=== PATIENT | female | born 1990 | race American Indian/Alaskan Native ===

== ENCOUNTER 2019-01-30 22:41 | Outpatient (CLI) | payer MEDICAID ==
[2019-01-30] MEDS ORDERED: LACTATED RINGERS 1,000 ML IV ONE (23:22)
[2019-01-31 00:24] LABS: Bacteria,Urine 2+ /HPF (Negative); Bilirubin,Urine NEG (Negative); Blood,Urine SM (Negative); Color,Urine Yellow (Yellow); Mucus,Urine FEW /HPF; Protein,Urine <15 mg/dL mg/dL (Negative); Urobilinogen,Urine < 2.0 mg/dL (<2.0)
[2019-01-31] MEDS ORDERED: BRETHINE SUB-Q ONE ×2 (00:45→01:51)
[2019-01-31] MEDS ORDERED: VISTARIL PO ONE (01:51)
[2019-01-31 02:08] VITALS: BP 128/70
== END 2019-01-31 03:13 | disposition home or self-care (01) ==
LOC: TRG 22:41
PROVIDERS: ATTEND Obstetrics & Gynecology
DX: O62.9 Abnormality of forces of labor, unspecified (principal); O24.415 Gestational diabetes mellitus in pregnancy, controlled by oral hypoglycemic drugs; Z3A.33 33 weeks gestation of pregnancy; Z87.891 Personal history of nicotine dependence
CPT/HCPCS: 36415; 59025; 81001; 82731; 87086; 96360; 96372; J3105; J7120; 96361; Q0177

== ENCOUNTER 2019-02-01 18:00 | Outpatient (CLI) | payer MEDICAID ==
[2019-02-01] MEDS ORDERED: LACTATED RINGERS 500 ML IV ONE (18:59)
[2019-02-01] MEDS ORDERED: LACTATED RINGERS 1,000 ML IV ONE ×2 (19:38→22:03)
[2019-02-01] MEDS ORDERED: BRETHINE ONE (20:09)
[2019-02-01] MEDS: BRETHINE SUB-Q SCH ×3 (20:11→21:11)
[2019-02-01 20:22] LABS: Bilirubin,Urine NEG (Negative); Blood,Urine NEG (Negative); Color,Urine Amber (Yellow); Mucus,Urine 3+ /HPF
[2019-02-01 20:23] LABS: Protein,Urine >500 mg/dL (Negative)
--- NOTE | 2019-02-01 21:55 | Ultrasound Report ---
Examination: Ultrasound Obstetrical Limited, 02/01/2019 INDICATION: Evaluate well being. COMPARISON: No prior studies are available for comparison FINDINGS: There is a single living intrauterine with the head in the cephalic position. Amniotic flui d index measures 9.7 cm, which is within normal limits. The heart rate is 147 beats per minute. Signer Name: Shari Gray MD Signed: 02/01/2019 9:51 PM Workstation Name: [email or web address][id number]
--- NOTE | 2019-02-01 21:56 | Ultrasound Report ---
ULTRASOUND BIOPHYSICAL PROFILE INDICATION / CLINICAL INFORMATION: Evaluate well-being COMPARISON: Limited obstetrical ultrasound, 02/01/2019 FINDINGS: BREATHING MOVEMENT = 2 GROSS BODY MOVEMENT = 2 TONE = 2 QUALITATIVE AMNIOTIC FLUID VOLUME = 2 TOTAL BIOPHYSICAL SCORE = 01/01 AMNIOTIC FLUID INDEX (cm) = 9.7 PRESENTATION: Cephalic. HEART RATE (beats per minute): 147 IMPRESSION: 1. biophysical profile = 01/01 Signer Name: Shari Gray MD Signed: 02/01/2019 9:52 PM Workstation Name: [id number]
[2019-02-01 21:58] VITALS: BP 122/78
[2019-02-01] MEDS ORDERED: ROCEPHIN/NS 1 GM/50 ML 1 GM/50 ML BAG IV ONE (23:00)
== END 2019-02-01 23:12 | disposition home or self-care (01) ==
LOC: TRG 18:00
PROVIDERS: ATTEND Obstetrics & Gynecology
DX: O62.9 Abnormality of forces of labor, unspecified (principal); O26.893 Other specified pregnancy related conditions, third trimester; R06.00 Dyspnea, unspecified; O24.419 Gestational diabetes mellitus in pregnancy, unspecified control; Z3A.33 33 weeks gestation of pregnancy
CPT/HCPCS: 36415; 59025; 76815; 76819; 81001; 82731; 82962; 87086; 96361; 96365; 96372; J0696; J3105; J7120; 96360

== ENCOUNTER 2019-02-23 15:07 | Inpatient (IN) | payer MEDICAID ==
[2019-02-23] MEDS ORDERED: BICITRA ORAL LIQD 30ML PO SCH (15:49)
[2019-02-23] MEDS ORDERED: OXYTOCIN 20 UNIT/1000ML DRIP 20 UNITS/1,000 ML BAG IV SCH ×2 (16:00→20:43)
[2019-02-23] MEDS: LACTATED RINGERS 1,000 ML IV SCH ×2 (16:00→16:39)
--- NOTE | 2019-02-23 16:04 | History and Physical Report ---
<MICHAEL MELENDEZ - Last Filed: 02/23/19 17:05> History of Present Illness Date of examination: 02/23/19 ([facility] recommends delivery due to new dx PreE) Date of admission: 02/23/19 15:13 Chief complaint: Received a call from @ [facility] he recommends delivery due to worsening CHTN now superimposed PreE History of present illness: EDC Confirmation: 03/20/2019 Gestational Age: 10 4/7 weeks Past History : 3 Term Births: 1 Premature Births: 0 Living Children: 1 Para: 1 Mult. Births: 0 Prev. attempt? 0 Aborta: 1 Elect. Ab: 0 Spont. Ab: 1 Ectopics: 0 # 1 Delivery date: 2013 Weeks Gestation: 39 Delivery type: Anesthesia type: epidural Delivery location: [facility] Infant Sex: Male weight: 7-2 Comments: Schedule C/S for GHTN # 2 Delivery date: 2014 Weeks Gestation: 11 Comments: D&C Past Medical History: CHTN - no meds panic attacks PCOS Past Surgical History: C/S Past Medical History Surgery (Non-cook starch): C/S Abnormal PAP: negative JAQUAN Exposure: negative Infertility: negative Uterine Anomaly: negative Uterine Surgery (not C/S): negative Other Gynecologic Problems: negative Social Hx: Patient is single Smoking History: Patient has never smoked. Infection History Hx of STD: none HIV Risk Eval: low risk Hepatitis B Risk Eval: low risk Personal hx. of genital herpes: no Partner hx. of genital herpes: no Rash, Viral, or Febrile illness since last LMP? no Varicella/Chicken Pox Status: Immunized TB Risk: no Infection History Comments: h/o chlamydia Genetic History Congenital Heart Defect: Mom: no Dad: no Jun Disease: Mom: no Dad: no Thalassemia Mom: no Dad: no Neural Tube Defect Mom: no Dad: no Down's Syndrome Mom: yes Dad: no Comments: pt's uncle Greg-Sachs Mom: no Dad: no Sickle Cell Disease/Trait Mom: no Dad: yes Comments: pt's son has SCT Hemophilia Mom: no Dad: no Muscular Dystrophy Mom: no Dad: no Cystic Fibrosis Mom: no Dad: no Rincon Chorea Mom: no Dad: no Mental Retardation Mom: no Dad: no Fragile X Mom: no Dad: no Other Genetic/Chromosomal Disorder Mom: no Dad: no Child w/other defect Mom: no Dad: no Enviromental Exposures Xray Exposure: no Medication, drug, or alcohol use since LMP: no Chemical/Other Exposure: no Exposure to Cat Liter: no Hx of Parvovirus (Fifth Disease): no Occupational Exposure to Children: none Active Medications (reviewed today): None Current Allergies (reviewed today): No known allergies Past History - Obstetrical History Expected Date of Delivery: 03/20/19 Actual Gestation: 36 Week(s) 3 Day(s) : 3 Para: 1 Hx # Term Pregnancies: 1 Number of Pregnancies: 0 Spontaneous Abortions: 1 (D&C) Induced : 0 Number of Living Children: 1 Medications and Allergies Allergies Allergy/AdvReac Type Severity Reaction Status Date / Time No Known Allergies Allergy Verified 11/04/14 12:17 Home Medications Medication Instructions Recorded Confirmed Last Taken Type Metformin HCl [metFORMIN] 2 tab PO QPM 01/30/19 01/30/19 01/29/19 History metFORMIN [Glucophage] 1 tab PO QAM 01/30/19 01/30/19 01/30/19 09:00 History Active Meds: Active Medications Citric Acid/Sodium Citrate (Bicitra) 30 ml PO ONCE MATT Stop: 02/24/19 15:48 Famotidine (Pepcid) 20 mg IV ONCE ONE Stop: 02/23/19 15:50 Oxytocin/Sodium Chloride (Pitocin/Ns 20 Unit/1000ml Drip) 20 units in 1,000 mls @ 0 mls/hr IV TITR MATT Lactated Ringer's (Lactated Ringers) 1,000 mls @ 2,250 mls/hr IV PREOP MATT Stop: 02/24/19 16:27 Cefazolin Sodium 3 gm/ Sodium (Chloride) 100 mls @ 100 mls/30 min IV PREOP NR; Protocol Metoclopramide HCl (Reglan) 10 mg IV ONCE ONE Stop: 02/23/19 15:50 - Vital Signs Vital signs: Vital Signs Pulse Pulse Ox 124 H 95 02/23/19 15:38 02/23/19 15:38 Temp Pulse Resp BP Pulse Ox 124 H 124/63 97 02/23/19 15:58 02/23/19 15:41 02/23/19 15:58 - Physical Exam Breasts: Positive: deferred Cardiovascular: Regular rate, Normal S1, Normal S2 Lungs: Positive: Clear to auscultation Abdomen: Positive: normal appearance, soft, normal bowel sounds. Negative: distention, tenderness Genitourinary (Female): Positive: normal external genitalia Vulva: both: normal Vagina: Positive: normal moisture. Negative: discharge Cervix: Negative: lesion, discharge Uterus: Positive: normal size, normal contour Adnexa: both: normal Anus/Rectum: Positive: normal perianal skin, heme negative. Negative: rectal mass, hemorrhoids Extremities: Positive: edema Deep Tendon Reflex Grade: Normal but brisk +3 - Obstetrical FHR: category 1 Uterine Contraction Monitor Mode: External Uterine Contraction Pattern: Absent Uterine Tone Measurement Phase: Resting Results Result Diagrams: 02/23/19 15:50 All other labs normal. GBS Negative HBsAg Screen Negative Negative *1 RPR Non Reactive Non Reactive *2 Rubella Antibodies, IgG 5.82 index Immune >0.99 *3 Non-immune <0.90 Equivocal 0.90 - 0.99 Immune >0.99 ABO Grouping O *4 Rh Factor Positive *5 Please note: Prior records for this patient's ABO / Rh type are not available for additional verification. Antibody Screen Negative Negative *6 WBC 10.8 x10E3/uL 3.4-10.8 *7 RBC 4.88 x10E6/uL 3.77-5.28 *8 Hemoglobin 11.7 g/dL 11.1-15.9 *9 Hematocrit 38.7 % 34.0-46.6 *10 MCV 79 fL 79-97 *11 MCH [L] 24.0 pg 26.6-33.0 *12 MCHC [L] 30.2 g/dL 31.5-35.7 *13 RDW 14.7 % 12.3-15.4 *14 Platelets 303 x10E3/uL 150-379 *15 Neutrophils 67 % Not Estab. *16 Lymphs 25 % Not Estab. *17 Monocytes 7 % Not Estab. *18 Eos 1 % Not Estab. *19 Basos 0 % Not Estab. *20 ! Immature Cells <No Reported Value> *21 Neutrophils (Absolute) [H] 7.2 x10E3/uL 1.4-7.0 *22 Lymphs (Absolute) 2.7 x10E3/uL 0.7-3.1 *23 Monocytes(Absolute) 0.8 x10E3/uL 0.1-0.9 *24 Eos (Absolute) 0.1 x10E3/uL 0.0-0.4 *25 Baso (Absolute) 0.0 x10E3/uL 0.0-0.2 *26 ! Immature Granulocytes 0 % Not Estab. *27 ! Immature Grans (Abs) 0.0 x10E3/uL 0.0-0.1 *28 ! NRBC <No Reported Value> *29 Hematology Comments: <No Reported Value> *30 Tests: (2) Ct, Ng, Trich vag by BRENNAN ([id number]) ! Chlamydia by BRENNAN Negative Negative *31 ! Gonococcus by BRENNAN Negative Negative *32 ! Trich vag by BRENNAN [A] Positive Negative *33 Tests: (3) HB Solu + Rflx [facility] ([id number]) Hemoglobin (Hgb) Solubility Negative Negative *34 Tests: (4) Panel [id number] ([id number]) HIV Screen 4th Generation wRfx Non Reactive Non Reactive *35 Tests: (5) HCV Ab w/Rflx to Verification ([id number]) ! HCV Ab <0.1 s/co ratio 0.0-0.9 *36 Tests: (6) Comment: ([id number]) ! Comment: SPRCS *37 Non reactive HCV antibody screen is consistent with no HCV infection, unless recent infection is suspected or other evidence exists to indicate HCV infection. Tests: (7) Urine Culture, Routine ([id number]) Urine Culture, Routine Final report *38 Tests: (8) Result ([id number]) ! Result 1 MUG Assessment and Plan - Patient Problems (1) Previous section Onset Date: ~02/23/19 Current Visit: Yes Status: Acute Plan to address problem: Pt agrees to repeat section Preop orders given. Pt last ate @ 0700 "a piece of chicken" All orders in EMR (2) Pre-eclampsia Current Visit: Yes Status: Acute Qualifiers: Trimester: third trimester Qualified Code(s): O14.93 - Unspecified pre- eclampsia, third trimester Plan to address problem: PIH labs ordered. As per [facility] this is new DX for pt. Will consult with Dr.Y garner regarding MGSO4 postoperatively BP 124/63 on admission Pt does have CHtn not on medication (3) Diabetes, gestational Onset Date: ~02/23/19 Current Visit: Yes Status: Acute Qualifiers: Gestational diabetes mellitus control: oral hypoglycemic-controlled Trimester: third trimester Qualified Code(s): O24.415 - Gestational diabetes mellitus in , controlled by oral hypoglycemic drugs Plan to address problem: Pt is on metformin declined to use insulin during Hgb A1c ordered (4) Trichomonal vaginitis Onset Date: ~02/23/19 Current Visit: Yes Status: Acute Plan to address problem: pt has been + for trich during most of and has been repeatedly treated Will consult with about using IV Flagyl <CIPRIANO STOUT - Last Filed: 02/23/19 17:12> History of Present Illness Date of admission: 02/23/19 15:13 Chief complaint: Patient seen and agree with plan. She states that she has changed her mind and did not want a tubal ligation at this time Medications and Allergies Active Meds: Active Medications Citric Acid/Sodium Citrate (Bicitra) 30 ml PO ONCE MATT Stop: 02/24/19 15:48 Last Admin: 02/23/19 17:00 Dose: 30 ml Documented by: Famotidine (Pepcid) 20 mg IV ONCE MATT Stop: 02/24/19 16:59 Last Admin: 02/23/19 16:59 Dose: 20 mg Documented by: Hydromorphone HCl (Dilaudid) 0.5 mg IV Q5M PRN PRN Reason: BREAK Hydromorphone HCl (Dilaudid) 0.5 mg IV Q4H PRN PRN Reason: breakthrough pain > 7/10 Oxytocin/Sodium Chloride (Pitocin/Ns 20 Unit/1000ml Drip) 20 units in 1,000 mls @ 0 mls/hr IV TITR MATT Lactated Ringer's (Lactated Ringers) 1,000 mls @ 2,250 mls/hr IV PREOP MATT Stop: 02/24/19 17:27 Last Admin: 02/23/19 16:39 Dose: 2,250 mls/hr Documented by: Cefazolin Sodium 3 gm/ Sodium (Chloride) 100 mls @ 100 mls/30 min IV PREOP NR; Protocol Stop: 02/24/19 15:59 Naloxone HCl (Narcan 0.4 Mg/1 Ml) 0.2 mg IV Q2MIN PRN PRN Reason: Res Rate </= 8 or 02 SAT < 92% Ondansetron HCl (Zofran) 4 mg IV Q8H PRN PRN Reason: Nausea And Vomiting Promethazine HCl (Phenergan) 25 mg PO Q6H PRN PRN Reason: Nausea And Vomiting Promethazine HCl (Phenergan) 25 mg DE Q6H PRN PRN Reason: Nausea And Vomiting Sodium Chloride (Sodium Chloride Flush Syringe 10 Ml) 10 ml IV PRN NR Stop: 02/24/19 16:59 - Vital Signs Vital signs: Vital Signs Pulse Pulse Ox 124 H 95 02/23/19 15:38 02/23/19 15:38 Temp Pulse Resp BP Pulse Ox 97.6 F 114 H 18 134/95 91 02/23/19 16:20 02/23/19 17:04 02/23/19 16:20 02/23/19 17:04 02/23/19 17:03 Results Result Diagrams: 02/23/19 15:50 Abnormal lab results 02/23/19 02/23/19 02/23/19 Range/Units 15:50 15:50 17:13 MCV 72 L (79-97) fl MCH 23 L (28-32) pg POC Glucose 66 L (70-105) Hemoglobin A1c 7.5 H (4-6) % All other labs normal. Assessment and Plan - Patient Problems (1) Previous section Onset Date: ~02/23/19 Current Visit: Yes Status: Acute Plan to address problem: Patient informed the risks of the surgery include bleeding possibly bleeding heavy enough to require blood transfusion, infection possible damage to bowel bladder ureter. All questions answered. Patient agrees to proceed
[2019-02-23 16:25] LABS: Basophils % (Auto) 0.3 % (0.0-1.8); Eosinophils % (Auto) 0.4 % (0.0-4.3); Hematocrit 34.4 % (30.3-42.9); Hemoglobin 10.9 gm/dl (10.1-14.3); Lymphocytes # (Auto) 2.7 K/mm3 (1.2-5.4); Mean Corpuscular HGB Conc 32 % (30-34); Mean Corpuscular Volume 72 fl (79-97); Monocytes # (Auto) 0.6 K/mm3 (0.0-0.8); Monocytes % (Auto) 6.1 % (0.0-7.3); Platelet Count 257 K/mm3 (140-440); Red Blood Count 4.76 M/mm3 (3.65-5.03); Red Cell Distribution Width 14.6 % (13.2-15.2)
[2019-02-23] MEDS ORDERED: METOCLOPRAMIDE 10 MG/2 ML INJ IV ONE (16:49)
[2019-02-23] MEDS ORDERED: ceFAZolin/Water 2 GM/20 ML 2 GM/20 ML SYRINGE IV ONE (16:54)
[2019-02-23] MEDS ORDERED: NALOXONE 0.4 MG/1 ML INJ IV PRN ×2 (16:56→20:43)
[2019-02-23] MEDS ORDERED: ONDANSETRON 4 MG/2 ML INJ IV PRN (16:56)
[2019-02-23] MEDS ORDERED: PROMETHAZINE 25 MG TAB PO PRN (16:56)
[2019-02-23] MEDS ORDERED: HYDROmorphone 1 MG/1 ML INJ IV PRN ×2 (16:56)
[2019-02-23] MEDS ORDERED: PROMETHAZINE 25 MG RECT SUPP PR PRN (16:56)
--- NOTE | 2019-02-23 16:58 | Anesthesia Day of Surgery ---
Anesthesia Day of Surgery - Day of Surgery Patient Examined: Yes Patient H&P Reviewed: Yes Patient is NPO: Yes
--- NOTE | 2019-02-23 16:58 | Anesthesia Consultation ---
Anesthesia Consult and Med Hx Date of service: 02/23/19 - Airway Anesthetic Teeth Evaluation: Good ROM Head & Neck: Adequate Mental/Hyoid Distance: Adequate Mallampati Class: Class II Intubation Access Assessment: Good - Pulmonary Exam CTA: Yes - Cardiac Exam Cardiac Exam: RRR - Pre-Operative Health Status ASA Pre-Surgery Classification: ASA3, Emergency Proposed Anesthetic Plan: Spinal - Pulmonary Hx Smoking: Yes Hx Asthma: No COPD: No Hx Pneumonia: No - Cardiovascular System Hx Hypertension: No Hx Cardia Arrhythmia: Yes (occasional when under stress. last episode 1yr ago.) - Central Nervous System Hx Seizures: No Hx Psychiatric Problems: No - Endocrine Hx Renal Disease: No Hx End Stage Renal Disease: No Hx Non-Insulin Dependent Diabetes: Yes (gestational) Hx Hypothyroidism: No Hx Hyperthyroidism: No - Hematic Hx Anemia: Yes Hx Sickle Cell Disease: No - Other Systems Hx Alcohol Use: No Hx Substance Use: Yes (marijuana use occas., last used "1 mo ago") Hx Cancer: No Hx Obesity: Yes (Morbid obesity, BMI 50.8)
[2019-02-23] MEDS ORDERED: PHENYLEPHRINE/NS 1,000 MCG/10 ML SYRINGE (OR USE) IV ONE (17:00)
[2019-02-23] MEDS ORDERED: FAMOTIDINE 20 MG/2 ML INJ IV SCH (17:00)
[2019-02-23] MEDS ORDERED: DEXMEDETOMIDINE 200 MCG/2 ML VIAL IV ONE (17:05)
[2019-02-23] MEDS ORDERED: ONDANSETRON 4 MG/2 ML INJ ONE (17:05)
[2019-02-23] MEDS ORDERED: DEXTROSE 50% IN WATER (25GM) 50 ML SYRINGE IV ONE (17:10)
[2019-02-23] MEDS ORDERED: SODIUM CHLORIDE 0.9% IRR 1,500 ML BOTTLE IR ONE (17:25)
[2019-02-23] MEDS ORDERED: WATER FOR IRRIG STERILE 1,500 ML BOTTLE IR ONE (17:25)
[2019-02-23] MEDS ORDERED: MAGNESIUM SULFATE 40GM/1000ML 0 GM/0 ML BAG IV ONE (17:27)
[2019-02-23] MEDS ORDERED: ePHEDrine SULFATE 50 MG/1 ML INJ ONE (17:53)
[2019-02-23] MEDS ORDERED: MAGNESIUM SULFATE 40GM/1000ML 40 GM/1,000 ML BAG IV SCH (18:00)
[2019-02-23] MEDS ORDERED: OXYTOCIN 10 UNIT/1 ML INJ ONE (18:14)
[2019-02-23] MEDS ORDERED: diphenhydrAMINE 50 MG/ML VIAL ONE (18:14)
[2019-02-23] MEDS ORDERED: KETOROLAC 30 MG/1 ML INJ ONE (18:14)
--- NOTE | 2019-02-23 18:51 | Operative Report ---
Operative Report Operative Report: Date of procedure: 02/23/2019 Pre-operative diagnosis: Intrauterine at 36 weeks with gestational di abetes and worsening gestational hypertension. Previous section and morbidly obese. Body mass index 63.8 kg/m Post-operative diagnosis: Same Procedure name(s): Repeat low transverse section Surgeon: Elkin Huggins MD Lard Refiner: Malini Sandoval, certified nurse direct selling counselor Anesthesia: Spinal EBL: 700 mL Complications: None Findings: Uterus with a thin lower uterine segment normal tubes and ovaries bilaterally. Female weight 9 lbs. 0 oz. Apgars 5 at 1 minute and 7 at 5 minutes Specimen(s): Placenta Procedure: The patient was brought to the operating room. A spinal was placed without any complications. She was then placed in left lateral tilt. Prepped and draped in the usual sterile manner. After testing for adequate anesthesia level, a Pfannenstiel incision was made through her previous scar. This incision was taken down to the fascia. The fascia was then nicked in the midline. This incision was extended out laterally with Post scissors. The fascia was then sharply and bluntly from the underlying rectus muscles. The rectus muscles were bluntly and sharply . The peritoneum was then entered with the bullard operator's fingers. This incision was spread vertically with care not to damage the bladder below. The bladder flap was then formed sharply and bluntly with Metzenbaum scissors. Bladder blade was placed. A transverse incision was made in lower uterine segment. This incision was extended laterally with the operators fingers. The amniotic sac was then entered bluntly with the bullard operator's fingers. The was delivered from the vertex position. Bulb suction on the mother's abdomen. Cord was double clamped and cut. The was then passed to the nursery personnel who were in attendance. The above scores were given by the nursery personnel. The placenta was then bluntly removed. The uterus was then externalized and wiped clean the remaining products. The uterine incision was closed in layers. The first incision was closed in a locking manner using 0 Vicryl. This was followed by imbricating stitch also with 0 Vicryl. This closure was hemostatic. The bladder flap was copiously irrigated and found to be hemostatic. The pelvis was copiously irrigated and found to be hemostatic. The uterus was then placed back to the patient's abdomen. The retractors were removed. The rectus muscles were inspected and found to be hemostatic. The fascia was then closed in a running manner using 0 Vicryl. This incision was hemostatic irrigation Bovie. The skin was reapproximated with 4-0 Vicryl subcuticularly. The patient tolerated procedure well. Her urine was clear. The infant was admitted to the [well baby] nursery. The patient was accompanied to recovery room in good condition. Instrument count correct 3
[2019-02-23 19:19] LABS: Alanine Aminotransferase 8 units/L (7-56); Uric Acid 4.3 mg/dL (3.5-7.6)
[2019-02-23] MEDS ORDERED: SODIUM CHLORIDE 0.9% 1000 ML 1,000 ML IV SCH (20:43)
[2019-02-23] MEDS ORDERED: HYDROcodone/ACETAMINOPHEN 5-325 MG TAB PO PRN (20:43)
[2019-02-23] MEDS ORDERED: SIMETHICONE 80 MG CHEW TAB PO PRN (20:43)
[2019-02-23] MEDS ORDERED: WITCH HAZEL/ GLYCERIN PAD TP PRN (20:43)
[2019-02-23] MEDS ORDERED: LANOLIN/ZINC/DIMETHICONE (LANSINOH) 7 GM TP PRN (20:43)
[2019-02-23] MEDS ORDERED: MAGNESIUM HYDROXIDE (MOM) ORAL LIQD UDC PO PRN (20:43)
[2019-02-23] MEDS ORDERED: DEXTROSE 50% IN WATER (25GM) 50 ML SYRINGE IV PRN (20:43)
[2019-02-23] MEDS: KETOROLAC 30 MG/1 ML INJ IV SCH (20:56)
[2019-02-23] MEDS: HYDROmorphone 1 MG/1 ML INJ IV PRN (21:56)
[2019-02-24] MEDS: ceFAZolin/NS 1 GM/50 ML 1 GM/50 ML BAG IV SCH ×2 (01:25→09:18)
[2019-02-24] MEDS: HYDROmorphone 1 MG/1 ML INJ IV PRN ×4 (01:25→22:09)
[2019-02-24] MEDS: KETOROLAC 30 MG/1 ML INJ IV SCH ×2 (03:56→14:30)
[2019-02-24] MEDS: INSULIN REGULAR, HUMAN 100 UNITS/1 ML SUB-Q SCH ×4 (06:02→19:43)
--- NOTE | 2019-02-24 06:28 | Event Note ---
Date: 02/24/19 (BP 140-120/90) Spoke with 1. will start labetalol 200mg po BID 3. BS fasting & 2hr PP 3. medicine consult to guide with tx of GDM vs DM; A1c 7.1 4. Flagyl IVPB due to persistent Trich in
--- NOTE | 2019-02-24 07:58 | Progress Note ---
Assessment and Plan patient reports pain medication is not holding her pain at reasonable level, will increase Basin from 1 tab to 2 tabs PO q6h to manage pain. Lochia small, difficult to fully assess fundus d/t body habitus and BMI. Incision D&I. encouraged AM care, advance diet and activity as tolerated. Breast pumping while in NICU q3hr. - Patient Problems (1) delivery delivered Current Visit: Yes Status: Acute Plan to address problem: continue postop pathway advance diet and activity as tolerated (2) Diabetes, gestational Onset Date: ~02/23/19 Current Visit: Yes Status: Acute Qualifiers: Gestational diabetes mellitus control: unspecified Trimester: third trimester Qualified Code(s): O24.419 - Gestational diabetes mellitus in , unspecified control Plan to address problem: Medicine and nutritional consult ordered in NICU for glucose monitoring Advance diet to consistent carbohydrate when passing gas. continue with blood sugar monitoring (3) BMI 60.0-69.9, adult Current Visit: Yes Status: Acute Plan to address problem: nutritional consult ordered careful care of incision (4) Pre-eclampsia Current Visit: Yes Status: Acute Qualifiers: Trimester: third trimester Qualified Code(s): O14.93 - Unspecified pre- eclampsia, third trimester Plan to address problem: b/p 120-140's/90's Labetalol 200mg PO BID Pt denies SOUZA, visual changes or epigastric pain Continue to monitor Subjective - Subjective Date of service: 02/24/19 Principal diagnosis: postop day #1 s/p repeat c/s Patient reports: appetite normal, voiding normally, pain poorly controlled, ambulating normally, no dizzy ambulation, no flatus, no bowel movement, no na useated : in NICU, other (plans on ) Objective - Vital Signs Latest vital signs: Vital Signs Temp Pulse Resp BP BP Pulse Ox 02/24/19 06:57 18 02/24/19 05:57 18 02/24/19 05:50 99.4 F 109 H 20 127/92 02/24/19 04:26 16 02/24/19 04:15 98.1 F 96 H 22 142/93 95 02/24/19 03:56 18 02/24/19 01:55 18 02/24/19 01:25 20 02/23/19 22:56 98.5 F 18 129/96 02/23/19 22:26 18 02/23/19 21:56 20 02/23/19 21:26 18 02/23/19 20:56 18 02/23/19 18:50 93 H 16 99/58 99 02/23/19 17:04 114 H 134/95 02/23/19 17:03 117 H 91 02/23/19 16:58 120 H 97 02/23/19 16:53 110 H 98 02/23/19 16:48 132 H 98 02/23/19 16:43 111 H 99 02/23/19 16:38 119 H 98 02/23/19 16:33 113 H 99 02/23/19 16:28 111 H 98 02/23/19 16:23 116 H 97 02/23/19 16:20 97.6 F 116 H 18 124/63 02/23/19 16:18 117 H 98 02/23/19 16:13 108 H 98 02/23/19 16:08 131 H 98 02/23/19 16:03 120 H 98 02/23/19 15:58 124 H 97 02/23/19 15:53 119 H 98 02/23/19 15:48 114 H 96 02/23/19 15:43 137 H 97 02/23/19 15:41 116 H 124/63 02/23/19 15:38 124 H 95 Intake and Output 02/23/19 02/23/19 02/24/19 15:59 23:59 07:59 Intake Total 2300 360 Output Total 200 400 Balance 2100 -40 Intake: IV 2300 Lactated Ringers 1,000 ml 1000 @ 2250 mls/hr IV PREOP [facility] Rx#:[id number] Intake, Free Water 360 Output: Urine 200 400 Indwelling Catheter 400 Other: Total, Output Amount 200 Weight 163.293 kg Estimated Blood Loss 700 - Exam Breasts: Present: normal Cardiovascular: Present: Regular rate Lungs: Present: Clear to auscultation, Normal air movement Abdomen: Present: normal appearance, soft. Absent: distention, tenderness, guarding Vulva: both: normal Uterus: Present: normal, firm, fundal height at umbilicus Extremities: Present: normal Deep Tendon Reflex Grade: Normal +2 Incision: Present: normal, dry, intact - Labs Labs: Abnormal lab results 02/23/19 02/23/19 02/23/19 Range/Units 15:50 15:50 15:50 MCV 72 L (79-97) fl MCH 23 L (28-32) pg Creatinine 0.5 L (0.7-1.2) mg/dL POC Glucose (70-105) Hemoglobin A1c 7.5 H (4-6) % Magnesium (1.7-2.3) mg/dL Lactate Dehydrogenase 303 H (91-180) units/L 02/23/19 02/23/19 02/23/19 Range/Units 17:13 17:44 18:16 MCV (79-97) fl MCH (28-32) pg Creatinine (0.7-1.2) mg/dL POC Glucose 66 L 113 H 106 H (70-105) Hemoglobin A1c (4-6) % Magnesium (1.7-2.3) mg/dL Lactate Dehydrogenase (91-180) units/L 02/23/19 02/24/19 02/24/19 Range/Units 19:16 00:07 06:07 MCV (79-97) fl MCH (28-32) pg Creatinine (0.7-1.2) mg/dL POC Glucose 107 H 112 H (70-105) Hemoglobin A1c (4-6) % Magnesium 1.40 L (1.7-2.3) mg/dL Lactate Dehydrogenase (91-180) units/L
[2019-02-24] MEDS ORDERED: metroNIDAZOLE/NS 1000 MG-200ML 1,000 MG in EMPTY BAG 0 ML IV ONE (09:00)
[2019-02-24] MEDS: PRENATAL VIT27-FE FUMARATE-FOLIC ACID VIT TAB PO SCH (09:18)
[2019-02-24] MEDS ORDERED: metFORMIN 500 MG TAB PO SCH (10:00)
[2019-02-24 10:33] LABS: Hematocrit 28.1 % (30.3-42.9); Hemoglobin 8.9 gm/dl (10.1-14.3)
[2019-02-24] MEDS: HYDROcodone/ACETAMINOPHEN 5-325 MG TAB PO PRN (14:00)
[2019-02-24] MEDS: FERROUS SULFATE 325 MG TAB PO SCH (14:30)
[2019-02-25] MEDS: HYDROcodone/ACETAMINOPHEN 5-325 MG TAB PO PRN ×4 (00:15→22:05)
[2019-02-25] MEDS: INSULIN REGULAR, HUMAN 100 UNITS/1 ML SUB-Q SCH ×4 (00:19→18:02)
[2019-02-25] MEDS: IBUPROFEN 800 MG TAB PO PRN ×2 (05:39→19:33)
--- NOTE | 2019-02-25 09:00 | Progress Note ---
Assessment and Plan POD 2 s/p repeat c/s. Patient sitting on side of bed, states she is on her way to see infant in NICU. Patient reports feeling well, she denies any complaints. FF, ML, @U. Vaginal bleeding is small, patient denies any heavy bleeding. She reports she had a "large clot" this morning, cups hands to size of golfball when she awoke this morning and ambulated to bathroom to empty. Encouraged pt to continue to empty bladder frequently, notify nursing staff of any clots so that they can assess. Incision is well approximated, healing well, no bleeding or drainage noted, no s/s infection. DWP proper care/hygiene for incision. Patient has breast pump to bedside, reports it is going well, no breast complaints. Encouraged frequent pumping to increase supply. Reviewed post delivery H&H with patient, she denies any dizziness or feeling faint with ambulation or position changes. She denies any SOUZA, Visual disturbances, SOB, chest pain, difficulty breathing, or any other complaints. Encouraged to continue frequent ambulation, increase water intake, use of IS. VSSAF on labetalol at current order. Reviewed pt blood sugar levels, she attributes elevated levels d/t RN not wiping first drop of blood from finger prior to testing samplt. DWP A1c level and good nutrition and compliance with regimen/plan set by care providers. Pt denies seeing anyone yet for consults placed, RN aware of consults and will call to ensure they are aware to see patient today. Will continue to monitor BP and BS, continue post op pathway. (1) delivery delivered Current Visit: Yes Status: Acute Plan to address problem: continue postop pathway advance diet and activity as tolerated (2) Diabetes, gestational Onset Date: ~02/23/19 Current Visit: Yes Status: Acute Qualifiers: Gestational diabetes mellitus control: unspecified Trimester: third trimester Qualified Code(s): O24.419 - Gestational diabetes mellitus in , unspecified control Plan to address problem: Medicine and nutritional consult ordered in NICU for glucose monitoring continue with blood sugar monitoring (3) BMI 60.0-69.9, adult Current Visit: Yes Status: Acute Plan to address problem: nutritional consult ordered careful care and thorough assessment of incision (4) Pre-eclampsia Current Visit: Yes Status: Acute Qualifiers: Trimester: third trimester Qualified Code(s): O14.93 - Unspecified pre- eclampsia, third trimester Plan to address problem: b/p 110-140's/70-90's Labetalol 200mg PO BID Pt denies SOUZA, visual changes or epigastric pain Continue to monitor Subjective - Subjective Date of service: 02/25/19 Principal diagnosis: postop day #2 s/p repeat c/s Patient reports: appetite normal, voiding normally, pain well controlled, flatus, ambulating normally [place]: in NICU Objective - Vital Signs Latest vital signs: Vital Signs Temp Pulse Resp BP BP Pulse Ox 02/25/19 06:39 18 02/25/19 05:39 18 02/25/19 04:00 98.6 F 63 18 117/72 02/25/19 01:15 18 02/25/19 00:15 18 02/25/19 00:00 98.4 F 74 18 106/71 02/24/19 22:39 18 02/24/19 22:10 80 118/82 02/24/19 22:09 18 02/24/19 19:30 98.4 F 80 18 118/82 02/24/19 15:55 99.5 F 86 20 137/91 96 Intake and Output 02/24/19 02/25/19 02/25/19 23:59 07:59 15:59 Intake Total 300 Output Total 200 300 Balance 100 -300 Intake: Intake, Free Water 300 Output: Urine 200 300 Indwelling Catheter 200 Void 300 Other: Total, Output Amount 200 300 # Voids Indwelling Catheter 3 Void 1 1 - Exam Breasts: Present: normal Cardiovascular: Present: Regular rate, Normal S1, Normal S2 Lungs: Present: Clear to auscultation, Normal air movement Abdomen: Present: normal appearance, soft, normal bowel sounds Vulva: both: normal Uterus: Present: normal, firm, fundal height at umbilicus Extremities: Present: normal Deep Tendon Reflex Grade: Normal +2 Incision: Present: normal, dry, intact - Labs Labs: Abnormal lab results 02/24/19 02/24/19 02/24/19 Range/Units 10:13 10:15 14:27 Hgb 8.9 L (10.1-14.3) gm/dl Hct 28.1 L D (30.3-42.9) % POC Glucose 122 H 160 H (70-105) 02/24/19 02/24/19 Range/Units 19:05 21:24 Hgb (10.1-14.3) gm/dl Hct (30.3-42.9) % POC Glucose 167 H 107 H (70-105)
[2019-02-25] MEDS: FERROUS SULFATE 325 MG TAB PO SCH (09:40)
[2019-02-25] MEDS: PRENATAL VIT27-FE FUMARATE-FOLIC ACID VIT TAB PO SCH (09:40)
--- NOTE | 2019-02-25 12:35 | Consultation ---
History of Present Illness - Reason for Consult Consult date: 02/25/19 HTN, Diabetes Requesting physician: CIPRIANO STOUT - History of Present Illness 28 YO Female with Gestational DM, HTN, Preeclampsia POD #2 S/P C Section. Consult placed for DM and HTN. Pt seen and evaluated in her room. Pt denies fever, chills, CP, Palpitations, NVD, Headache, Blurred vision, Trauma, Productive cough, Polydipsia, Polyuria, Polyphagia. Pt denies any complaints at time of exam. No reported nursing events. Pt ambulating independently. Past History Past Medical History: diabetes, hypertension Past Surgical History: Social history: single. denies: smoking, alcohol abuse, prescription drug abuse Family history: hypertension Medications and Allergies Allergies Allergy/AdvReac Type Severity Reaction Status Date / Time No Known Allergies Allergy Verified 11/04/14 12:17 Home Medications Medication Instructions Recorded Confirmed Last Taken Type Metformin HCl [metFORMIN] 2 tab PO QPM 01/30/19 02/23/19 01/29/19 History metFORMIN [Glucophage] 1 tab PO QAM 01/30/19 02/23/19 01/30/19 09:00 History Ferrous Sulfate [Feosol 325 MG tab] 325 mg PO BID #60 tablet 02/23/19 Unknown Rx Ibuprofen [Motrin 800 MG tab] 800 mg PO Q6H PRN #30 tablet 02/23/19 Unknown Rx oxyCODONE /ACETAMINOPHEN [Percocet 1 - 2 tab PO Q4H PRN #30 tablet 02/23/19 Unknown Rx 5/325 mg] Active Meds: Active Medications Acetaminophen/Hydrocodone Bitart ([place] 5/325) 2 each PO Q6H PRN PRN Reason: Pain, Moderate (4-6) Last Admin: 02/25/19 00:15 Dose: 2 each Documented by: Dextrose (D50w (25gm) Syringe) 50 ml IV PRN PRN PRN Reason: Hypoglycemia Ferrous Sulfate (Feosol) 325 mg PO QDAY MATT Last Admin: 02/24/19 14:30 Dose: 325 mg Documented by: Hydromorphone HCl (Dilaudid) 0.5 mg IV Q4H PRN PRN Reason: Pain , Severe (7-10) Last Admin: 02/24/19 22:09 Dose: 0.5 mg Documented by: Magnesium Sulfate (Magnesium Sulfate 40gm/1000ml) 40 gm in 1,000 mls @ 50 mls/hr IV DIRECT MATT Oxytocin/Sodium Chloride (Pitocin/Ns 20 Unit/1000ml Drip) 20 units in 1,000 mls @ 250 mls/hr IV DIRECT MATT Sodium Chloride (Nacl 0.9% 1000 Ml) 1,000 mls @ 75 mls/hr IV DIRECT MATT Last Admin: 02/24/19 03:56 Dose: 75 mls/hr Documented by: Ibuprofen (Ibuprofen) 800 mg PO Q6H PRN PRN Reason: Pain, Mild (1-3) Last Admin: 02/25/19 05:39 Dose: 800 mg Documented by: Insulin Human Regular (Humulin R) 0 units SUB-Q Q6HR [facility]; Protocol Last Admin: 02/25/19 05:47 Dose: Not Given Documented by: Labetalol HCl (Normodyne) 200 mg PO BID [facility] Last Admin: 02/24/19 22:10 Dose: 200 mg Documented by: Magnesium Hydroxide (Milk Of Magnesia) 30 ml PO QHS PRN PRN Reason: Constip Unrelieved By Senna Multi-Ingredient Ointment (Lansinoh) 1 applic TP PRN PRN PRN Reason: dryness/cracking Multivitamins/Iron/Calcium ( Vitamin) 1 each PO QDAY [facility] Last Admin: 02/24/19 09:18 Dose: 1 each Documented by: Naloxone HCl (Narcan 0.4 Mg/1 Ml) 0.1 mg IV Q2MIN PRN PRN Reason: Res Rate </= 8 or 02 SAT < 92% Simethicone (Mylicon) 80 mg PO Q6H PRN PRN Reason: Gas pain Last Admin: 02/25/19 05:47 Dose: 80 mg Documented by: Sodium Chloride (Sodium Chloride Flush Syringe 10 Ml) 10 ml IV PRN PRN PRN Reason: LINE FLUSH Witch Leydi/Glycerin (Tucks Pad) 1 each TP PRN PRN PRN Reason: Hemorrhoids/cleansing/soothing Review of Systems Constitutional: no weight loss, no weight gain, no fever, no sweats Ears, nose, mouth and throat: no ear pain, no tinnitis, no decreased hearing, no nasal congestion, no nasal discharge, no sinus pressure Breasts: no change in shape, no swelling, no mass Cardiovascular: no chest pain, no palpitations, no rapid/irregular heart beat, no edema, no syncope, no lightheadedness Respiratory: no cough, no cough with sputum, no excessive sputum, no hemoptysis, no shortness of breath, no dyspnea on exertion Gastrointestinal: no nausea, no vomiting, no constipation, no change in bowel habits, no hematemesis, no coffee ground emesis Genitourinary Female: no dysmenorrhea, no pelvic pain, no flank pain, no me norrhagia, no dysuria, no urinary frequency, no urgency, no post void dribbling, no incomplete emptying Menstruation: no currently menstrual, no post hysterectomy, no ammenorrhea, no period normal, no period heavy, no period light Rectal: no pain, no incontinence, no bleeding, no itching, no hemorrhoids Musculoskeletal: no neck stiffness, no neck pain, no shooting arm pain, no low back pain, no shooting leg pain, no leg numbness/tingling, no muscle cramps, no myalgias, no atrophy, no limitation of motion Integumentary: no rash, no pruritis, no redness, no sores, no wounds, no jaundice, no boils Neurological: no transient paralysis, no paralysis, no parathesias, no numbness, no tingling, no seizures, no syncope, no tremors, no ataxia, no migraines, no convulsions, no change in speech, no change in mentation, no confusion, no memory loss Psychiatric: no anxiety, no hypersomnia, no change in appetite, no change in libido, no suicidal ideation, no disorientation Endocrine: no cold intolerance, no heat intolerance, no polyphagia, no excessive thirst, no polyuria, no nocturia, no excessive sweating, no flushing, no deepening of the voice, no thyroid mass, no palpatations, no low blood sugars Hematologic/Lymphatic: no easy bruising, no easy bleeding, no lymphadenopathy, no lymphedema Allergic/Immunologic: no urticaria, no allergic rhinitis, no persistent infec tions, no anaphylaxis Exam - Constitutional Vitals: Temp Pulse Resp BP Pulse Ox 97.7 F 88 18 144/90 96 02/25/19 08:19 02/25/19 08:19 02/25/19 08:19 02/25/19 08:19 02/25/19 08:19 General appearance: Present: no acute distress, well-nourished, obese - EENT Eyes: Present: PERRL ENT: hearing intact, clear oral mucosa - Neck Neck: Present: supple, normal ROM - Respiratory Respiratory effort: normal Respiratory: bilateral: CTA - Cardiovascular Heart Sounds: Present: S1 & S2. Absent: rub, click - Extremities Extremities: pulses symmetrical, No edema Peripheral Pulses: within normal limits - Abdominal General gastrointestinal: Present: soft, non-tender, non-distended, normal bowel sounds Female genitourinary: Present: normal - Integumentary Integumentary: Present: clear, warm, dry - Musculoskeletal Musculoskeletal: gait normal, strength equal bilaterally - Psychiatric Psychiatric: appropriate mood/affect, intact judgment & insight - Neurologic Neurologic: CNII-XII intact, moves all extremities Results - Labs CBC & Chem 7: 02/24/19 10:13 02/23/19 15:50 Labs: Abnormal lab results 02/24/19 02/24/19 02/24/19 Range/Units 14:27 19:05 21:24 POC Glucose 160 H 167 H 107 H (70-105) 02/25/19 Range/Units 10:33 POC Glucose 132 H (70-105) Assessment and Plan - Patient Problems (1) HTN (hypertension) Current Visit: Yes Status: Acute Qualifiers: Hypertension type: essential hypertension Qualified Code(s): I10 - Essential (primary) hypertension Plan to address problem: Monitor BP q shift, continue medical management. continue Beta subhash therapy. (2) Diabetes, gestational Onset Date: ~02/23/19 Current Visit: Yes Status: Acute Qualifiers: Gestational diabetes mellitus control: unspecified Trimester: third trimester Qualified Code(s): O24.419 - Gestational diabetes mellitus in , unspecified control Plan to address problem: sliding scale insulin, accu check, hypoglycemia protocol, consistent carbohydrate diet. Outpatient F/U with BID glucose log.
[2019-02-26] MEDS: IBUPROFEN 800 MG TAB PO PRN ×2 (01:51→10:11)
[2019-02-26] MEDS: HYDROcodone/ACETAMINOPHEN 5-325 MG TAB PO PRN ×2 (03:50→12:00)
[2019-02-26] MEDS: INSULIN REGULAR, HUMAN 100 UNITS/1 ML SUB-Q SCH ×2 (06:35)
--- NOTE | 2019-02-26 07:55 | Progress Note ---
Assessment and Plan patient resting, no complaints. lochia scant, fundus firm, incision D&I. remains in NICU, per patient, doing well. pt would like to go home with infant. VSSAF, b/p over all are well controlled on Labetalol. in the last 24h, she has had 3 b/p's 140-150/90, the rest have been 120's/70's-80's. Will review with MD, plan for potential d/c home today if she remains stable. - Patient Problems (1) delivery delivered Current Visit: Yes Status: Acute Plan to address problem: continue postop pathway (2) Diabetes, gestational Onset Date: ~02/23/19 Current Visit: Yes Status: Acute Qualifiers: Gestational diabetes mellitus control: unspecified Trimester: third trimes ter Qualified Code(s): O24.419 - Gestational diabetes mellitus in , unspecified control Plan to address problem: Continue accuchecks She has not required dose of insulin (3) BMI 60.0-69.9, adult Current Visit: Yes Status: Acute (4) Pre-eclampsia Current Visit: Yes Status: Acute Qualifiers: Trimester: third trimester Qualified Code(s): O14.93 - Unspecified pre- eclampsia, third trimester Plan to address problem: Continue monitoring b/p Continue Labetalol (5) Anemia associated with acute blood loss Current Visit: Yes Status: Acute Plan to address problem: FE supplement and PNV Subjective - Subjective Date of service: 02/26/19 Principal diagnosis: postop day #3 s/p repeat c/s; pre-e and GDM Patient reports: appetite normal, voiding normally, pain well controlled, flatus, ambulating normally, no dizzy ambulation, no nauseated : in NICU Objective - Vital Signs Latest vital signs: Vital Signs Temp Pulse Resp BP BP Pulse Ox 02/26/19 04:50 98.4 F 83 18 121/79 97 02/26/19 00:00 97.9 F 82 18 127/86 97 02/25/19 22:05 93 H 157/97 02/25/19 16:30 97.8 F 92 H 18 121/81 97 02/25/19 08:19 97.7 F 88 18 144/90 96 Intake and Output 02/25/19 02/25/19 02/26/19 15:59 23:59 07:59 Intake Total 600 360 Balance 600 360 Intake: Intake, Free Water 600 360 Other: # Voids Void 2 2 - Exam Breasts: Present: normal Cardiovascular: Present: Regular rate Lungs: Present: Clear to auscultation, Normal air movement Abdomen: Present: normal appearance, soft Uterus: Present: normal Extremities: Present: normal Deep Tendon Reflex Grade: Normal +2 Incision: Present: normal, dry, intact - Labs Labs: Abnormal lab results 02/25/19 Range/Units 10:33 POC Glucose 132 H (70-105)
[2019-02-26] MEDS: PRENATAL VIT27-FE FUMARATE-FOLIC ACID VIT TAB PO SCH (10:10)
[2019-02-26] MEDS: FERROUS SULFATE 325 MG TAB PO SCH (10:10)
--- NOTE | 2019-02-26 12:51 | Discharge Summary ---
Providers - Providers Date of Admission: 02/23/19 15:13 Date of discharge: 02/26/19 (desires d/c home) Attending physician: CIPRIANO STOUT 02/23/19 20:43 Consult to Entry Level Sales Representative [CONS] Routine Reason For Exam: 02/24/19 06:19 Consult to Physician [CONS] Routine Comment: GDM vs DM Consulting Provider: COLT CAMARGO Physician Instructions: Hgb A1c 7.1 Reason For Exam: blood sugar control 02/24/19 07:27 Consult to Dietitian/Nutrition [CONS] Routine Physician Instructions: A1C 7.5 Reason For Exam: Reason for Consult: Diet education Primary care physician: CIPRIANO STOUT Hospitalization Reason for admission: section Procedure: section, repeat low transverse Incision: normal, dry, intact complications: none Discharge diagnosis: delivery (pre-e and GDM) Abbott baby: female Hospital course: uncomplicated repeat c/s Condition at discharge: Good Disposition: DC-01 TO HOME OR SELFCARE - Discharge Diagnoses (1) delivery delivered Status: Acute (2) Diabetes, gestational Status: Acute Qualifiers: Gestational diabetes mellitus control: unspecified Trimester: third trimester Qualified Code(s): O24.419 - Gestational diabetes mellitus in , unspecified control (3) BMI 60.0-69.9, adult Status: Acute (4) Pre-eclampsia Status: Acute Qualifiers: Trimester: third trimester Qualified Code(s): O14.93 - Unspecified pre- eclampsia, third trimester (5) Anemia associated with acute blood loss Status: Acute Plan - Discharge Medications Prescriptions: Ferrous Sulfate [Feosol 325 MG tab] 325 mg PO BID #60 tablet Labetalol [Labetalol 200mg TAB] 200 mg PO BID #60 tablet Ibuprofen [Motrin 800 MG tab] 800 mg PO Q6H PRN #30 tablet PRN Reason: Pain oxyCODONE /ACETAMINOPHEN [Percocet 5/325 mg] 1 - 2 tab PO Q4H PRN #30 tablet PRN Reason: Pain, Moderate - Provider Discharge Summary Activity: routine, no sex for 6 weeks, no heavy lifting 4 weeks, no strenuous exercise Diet: routine Instructions: routine Additional instructions: [] Smoking cessation referral if applicable(refer to patient education folder for contact #) [] Refer to [facility] Booklet Call your doctor immediately for: * Fever > 100.5 * Heavy vaginal bleeding ( >1 pad per hour) * Severe persistent headache * Shortness of breath * Reddened, hot, painful area to leg or breast * Drainage or odor from incision. * Keep incision clean and dry at all times and follow doctor's instructions regarding bathing/showering - Follow up plan Follow up: CIPRIANO STOUT MD [Primary Care Provider] - 7 Days (Congratulations! Please call [phone] to schedule your postop incision check and blood pressure check in 1 week. call for any questions or concerns.) Forms: [facility] Discharge Summary
[2019-02-26 15:26] VITALS: BP 126/86
--- NOTE | 2019-02-27 10:01 | Progress Note ---
Assessment and Plan Assessment and plan: Hypertension. Resume antihypertensive medications. BP stable Diabetes mellitus. Continue Accu-Cheks and sliding scale as well. Outpatient follow-up. History Interval history: No new issues overnight Hospitalist Physical - Constitutional Vitals: Temp Pulse Resp BP Pulse Ox 97.5 F L 96 H 22 126/86 97 02/26/19 15:15 02/26/19 15:15 02/26/19 15:15 02/26/19 15:15 02/26/19 15:15 General appearance: Present: no acute distress, well-nourished, obese - EENT Eyes: Present: PERRL, EOM intact ENT: hearing intact, clear oral mucosa, dentition normal - Neck Neck: Present: supple, normal ROM - Respiratory Respiratory effort: normal Respiratory: bilateral: CTA - Cardiovascular Rhythm: regular Heart Sounds: Present: S1 & S2. Absent: gallop, rub - Extremities Extremities: no ischemia, No edema, Full ROM - Abdominal General gastrointestinal: soft, non-tender, non-distended, normal bowel sounds - Integumentary Integumentary: Present: clear, warm, dry - Neurologic Neurologic: CNII-XII intact, moves all extremities Results - Labs CBC & Chem 7: 02/24/19 10:13 02/23/19 15:50 Labs: Laboratory Last Values WBC 9.2 K/mm3 (4.5-11.0) 02/23/19 15:50 RBC 4.76 M/mm3 (3.65-5.03) 02/23/19 15:50 Hgb 8.9 gm/dl (10.1-14.3) L 02/24/19 10:13 Hct 28.1 % (30.3-42.9) L D 02/24/19 10:13 MCV 72 fl (79-97) L 02/23/19 15:50 MCH 23 pg (28-32) L 02/23/19 15:50 MCHC 32 % (30-34) 02/23/19 15:50 RDW 14.6 % (13.2-15.2) 02/23/19 15:50 Plt Count 257 K/mm3 (140-440) 02/23/19 15:50 Lymph % (Auto) 30.0 % (13.4-35.0) 02/23/19 15:50 [place] % (Auto) 6.1 % (0.0-7.3) 02/23/19 15:50 Eos % (Auto) 0.4 % (0.0-4.3) 02/23/19 15:50 Baso % (Auto) 0.3 % (0.0-1.8) 02/23/19 15:50 Lymph # 2.7 K/mm3 (1.2-5.4) 02/23/19 15:50 [place] # 0.6 K/mm3 (0.0-0.8) 02/23/19 15:50 Eos # 0.0 K/mm3 (0.0-0.4) 02/23/19 15:50 Baso # 0.0 K/mm3 (0.0-0.1) 02/23/19 15:50 Seg Neutrophils % 63.2 % (40.0-70.0) 02/23/19 15:50 Seg Neutrophils # 5.8 K/mm3 (1.8-7.7) 02/23/19 15:50 Creatinine 0.5 mg/dL (0.7-1.2) L 02/23/19 15:50 Estimated GFR > 60 ml/min 02/23/19 15:50 POC Glucose 99 (70-105) 02/26/19 12:40 Hemoglobin A1c 7.5 % (4-6) H 02/23/19 15:50 Uric Acid 4.3 mg/dL (3.5-7.6) 02/23/19 15:50 Magnesium 1.40 mg/dL (1.7-2.3) L 02/24/19 00:07 AST 18 units/L (5-40) 02/23/19 15:50 ALT 8 units/L (7-56) 02/23/19 15:50 Lactate Dehydrogenase 303 units/L (91-180) H 02/23/19 15:50 RPR Nonreactive (Nonreactive) 02/23/19 15:50 Blood Type O POSITIVE 02/23/19 15:50 Antibody Screen Negative 02/23/19 15:50 Nutrition/Malnutrition Assess - Dietary Evaluation Nutrition/Malnutrition Findings: Nutrition Notes Start: 02/24/19 09:36 Freq: Status: Discharge Protocol: Document 02/24/19 09:36 KS (Rec: 02/24/19 10:51 KS [id number]) Co-Sign 02/24/19 09:36 NHALL Nutrition Notes Need for Assessment generated from: MD Order,Education Initial or Follow up Brief Note Current Diagnosis Diabetes,Hypertension Other Pertinent Diagnosis PCOS, GDM Current Diet GDM Diet Labs/Tests A1c 7.5 Glu 112 Height 5 ft 3 in Weight 163 kg [place] Body Weight (kg) 52.27 BMI 63.6 Subjective/Other Information MD order for education. Pt has elevated A1c and GDM. Pt reports no signs of DM before . Pt was educated on A1c and CHO intake. Burn Absent Trauma Absent Minimum of two criteria No #1 Nutrition Diagnosis Food and nutrition-related knowledge deficit Etiology pt onset new GDM As Evidenced by Signs and Symptoms pt unable to identify food sources of CHO Nutrition Intervention Change Diet Order: Continue current diet Teaching Recipient Patient Learning Readiness Good Teaching Methods Discussion,Handout Response to Teaching Verbalize understanding Education Handouts Provided CHO Counting for People with Diabetes Barriers to Learning No Barriers RD phone number provided Yes Patient aware of follow up options Yes Goal #1 Adhere to CHO controlled diet Revisit per MD consult or patient Sign Off request:
== END 2019-02-26 17:50 | disposition home or self-care (01) | DRG 765 ==
LOC: TRG 15:07 → APU 15:13 → OB 20:38
PROVIDERS: ADMIT Obstetrics & Gynecology; ATTEND Obstetrics & Gynecology
PROC: 10D00Z1 Extraction of Products of Conception, Low, Open Approach (ICD-10-PCS; principal; 2019-02-23)
DX: O34.211 Maternal care for low transverse scar from previous cesarean delivery (principal); O60.14X0 Preterm labor third trimester with preterm delivery third trimester, not applicable or unspecified; E66.01 Morbid (severe) obesity due to excess calories; O24.429 Gestational diabetes mellitus in childbirth, unspecified control; D62 Acute posthemorrhagic anemia; O98.32 Other infections with a predominantly sexual mode of transmission complicating childbirth; A59.01 Trichomonal vulvovaginitis; O99.214 Obesity complicating childbirth; O99.02 Anemia complicating childbirth; O11.4 Pre-existing hypertension with pre-eclampsia, complicating childbirth; Z3A.36 36 weeks gestation of pregnancy; Z37.0 Single live birth; Z71.3 Dietary counseling and surveillance; Z82.49 Family history of ischemic heart disease and other diseases of the circulatory system; Z79.899 Other long term (current) drug therapy
CPT/HCPCS: 36415; 82565; 82962; 83036; 83615; 83735; 84450; 84460; 84550; 85014; 85018; 85025; 86592; 86850; 86900; 86901; 88307; G0378; C1765; J0690; J1170; J1200; J1815; J1885; J2370; J2405; J2590; J2765; J3475; J3490; J7030; J7120